=== PATIENT | female | born 1960 | race Caucasian/White ===

== ENCOUNTER 2019-04-16 22:43 | Inpatient (IN) | payer MEDICAID ==
[~2019-04-16] VITALS: Ht 165.1 cm; Wt 86.6 kg
[2019-04-16 22:51] VITALS: BP_SYST 124
[2019-04-16] MEDS ORDERED: NS 1000 ML IV.SOLN IV ONE (23:15)
[2019-04-16] MEDS ORDERED: IBUPROFEN 600 MG TABLET PO ONE (23:15)
[2019-04-16 23:16] LABS: BILIRUBIN,URINE NEGATIVE (NEGATIVE); BLOOD, URINE 3+ (NEGATIVE); COLOR,URINE YELLOW (YELLOW); GLUCOSE,URINE NEGATIVE (NEGATIVE); KETONES,URINE NEGATIVE (NEGATIVE); LEUKOCYTE ESTERASE ,URINE TRACE (NEGATIVE); NITRITE, URINE NEGATIVE (NEGATIVE); PH,URINE 5.5 (5.0-8.0); PROTEIN URINE 3+ (NEGATIVE)
[2019-04-16 23:24] LABS: HEMATOCRIT 36.4 % (36-48); HEMOGLOBIN 12.6 g/dL (12.0-16.0); MEAN CORPUSCULAR HEMOGLOBIN 31 pg (27-31); MEAN CORPUSCULAR HGB CONC 35 % (32-36); MEAN CORPUSCULAR VOLUME 88 fL (79.0-98.0); PLATELET COUNT (AUTO) 220 K/uL (130-430); RED BLOOD CELL COUNT(AUTO) 4.11 MIL/uL (4.2-6.2); RED CELL DISTRIBUTION WIDTH 13.5 % (9.0-15.0); WHITE BLOOD COUNT (AUTO) 2.9 K/uL (4.8-10.8)
[2019-04-16] MEDS ORDERED: KETAMINE 30 MG/3 ML SYRINGE 30 MG in NS 100 ML IV ONE (23:30)
[2019-04-16] MEDS ORDERED: DILTIAZEM HCL 25 MG/5 ML VIAL IVP ONE (23:30)
[2019-04-16 23:31] LABS: CALCIUM 9.1 mg/dL (8.4-11.0); CREATININE 1.24 mg/dL (0.55-1.30); POTASSIUM 3.7 mmol/L (3.5-5.1)
[2019-04-16 23:37] LABS: ALBUMIN 3.2 g/dL (3.4-4.8)
[2019-04-16 23:38] LABS: BACTERIA,URINE FEW /HPF (None Seen); CLARITY/URINE HAZY (CLEAR); COARSE GRANULAR CASTS,URINE 0-10 /LPF (None Seen); FINE GRANULAR CASTS,URINE 0-10 /LPF (None Seen); YEAST,URINE Few /HPF (None Seen)
[2019-04-16 23:39] LABS: MUCUS,URINE 2+ /LPF (None Seen); OTHER CASTS, URINE WBC CASTS 1+ /LPF (None Seen)
[2019-04-16] MEDS ORDERED: NACL 0.9% 2,000 ML IV ONE (23:45)
[2019-04-16] MEDS ORDERED: NS 250 ML IV ONE (23:45)
[2019-04-16] MEDS ORDERED: cefTRIAXone 1 GM IVPB PREMIX 50 ML IV ONE (23:45)
[2019-04-16 23:55] LABS: BAND % (MANUAL) 28 % (0-6); BASOPHILS % (MANUAL) 0 % (0-2); EOSINOPHILS % (MANUAL) 0 % (0-7); LYMPHOCYTES % (MANUAL) 22 % (20-46); MONOCYTES % (MANUAL) 1 % (0-11)
[2019-04-17 02:08] VITALS: BP_SYST 138
[2019-04-17 07:52] VITALS: BP_SYST 93
[2019-04-17 14:39] VITALS: BP_SYST 94
[2019-04-17] MEDS: ACETAMINOPHEN 325 MG TABLET PO PRN (15:50)
[2019-04-17 17:11] VITALS: BP_SYST 105
[2019-04-17] MEDS ORDERED: cefTRIAXone 1 GM IVPB PREMIX 50 ML IV SCH (21:00)
[2019-04-18] VITALS: BP_SYST 110
[2019-04-18] MEDS: ACETAMINOPHEN 325 MG TABLET PO PRN ×2 (00:08→08:37)
[2019-04-18 08:27] VITALS: BP_SYST 126
[2019-04-18] MEDS ORDERED: GENTAMICIN SULFATE 300 MG in NS 100 ML IV ONE (09:00)
[2019-04-18 09:51] LABS: BASOPHILS % (AUTO) 0.7 % (0.0-2.0); EOSINOPHILS # (AUTO) 0.1 K/uL (0.0-0.4); EOSINOPHILS % (AUTO) 1.3 % (0.0-4.0); HEMATOCRIT 35.2 % (36-48); HEMOGLOBIN 12.1 g/dL (12.0-16.0); LYMPHOCYTES # (AUTO) 1.1 K/uL (1.0-5.5); LYMPHOCYTES % (AUTO) 16.2 % (20.5-51.5); MEAN CORPUSCULAR HEMOGLOBIN 31 pg (27-31); MEAN CORPUSCULAR HGB CONC 35 % (32-36); MEAN CORPUSCULAR VOLUME 89 fL (79.0-98.0); MONOCYTES % (AUTO) 15.8 % (1.7-9.3); NEUTROPHILS # (AUTO) 4.3 K/uL (1.8-7.7); PLATELET COUNT (AUTO) 241 K/uL (130-430); RED BLOOD CELL COUNT(AUTO) 3.94 MIL/uL (4.2-6.2); RED CELL DISTRIBUTION WIDTH 13.7 % (9.0-15.0); WHITE BLOOD COUNT (AUTO) 6.5 K/uL (4.8-10.8)
[2019-04-18 10:07] LABS: CALCIUM 9.2 mg/dL (8.4-11.0); CREATININE 0.77 mg/dL (0.55-1.30); POTASSIUM 3.5 mmol/L (3.5-5.1)
[2019-04-18 10:12] LABS: ALBUMIN 2.7 g/dL (3.4-4.8); TOTAL BILIRUBIN 0.6 mg/dL (0.0-1.0)
[2019-04-18 12:00] VITALS: BP_SYST 126
[2019-04-18] MEDS: PIPERACILLIN/TAZO 4.5GM/DEX-IS 100 ML IV SCH ×2 (15:10→21:22)
[2019-04-18] MEDS: HYDROcodone/ACETAMIN 5-325 MG TAB (NORCO/ VICODIN) PO PRN ×2 (15:23→22:16)
[2019-04-18 16:20] VITALS: BP_SYST 129
[2019-04-18 20:00] VITALS: BP_SYST 131
[2019-04-18 22:48] VITALS: BP_SYST 121
[2019-04-19] MEDS: PIPERACILLIN/TAZO 4.5GM/DEX-IS 100 ML IV SCH ×3 (05:01→21:43)
[2019-04-19 08:00] VITALS: BP_SYST 121
[2019-04-19] MEDS: HYDROcodone/ACETAMIN 5-325 MG TAB (NORCO/ VICODIN) PO PRN (09:11)
[2019-04-19] MEDS ORDERED: ONDANSETRON HCL 4 MG/2 ML VIAL IVP PRN (11:00)
[2019-04-19] MEDS ORDERED: GENTAMICIN SULFATE 300 MG in NS 100 ML IV ONE (12:30)
[2019-04-19 12:48] VITALS: BP_SYST 114
[2019-04-19] MEDS: ACETAMINOPHEN 325 MG TABLET PO PRN (13:55)
[2019-04-19 16:27] VITALS: BP_SYST 144
[2019-04-19 20:00] VITALS: BP_SYST 113
[2019-04-19 23:19] VITALS: BP_SYST 122
[2019-04-20] MEDS: PIPERACILLIN/TAZO 4.5GM/DEX-IS 100 ML IV SCH ×3 (05:15→21:08)
[2019-04-20 08:00] VITALS: BP_SYST 122
[2019-04-20 11:52] VITALS: BP_SYST 107
[2019-04-20] MEDS ORDERED: INSULIN REGULAR, HUMAN 100 UNITS/ML, 10 ML VIAL (humuLIN R) SUBCUT PRN (13:15)
[2019-04-20] MEDS ORDERED: DEXTROSE 50% JECT 50 ML DISP.SYRIN IVP PRN (13:15)
[2019-04-20] MEDS: NEOMYCIN/POLYMYXN B/GRAMICIDIN 10 ML OPHT. DROPS OP SCH ×3 (14:00→21:16)
[2019-04-20 16:28] VITALS: BP_SYST 114
[2019-04-20 20:00] VITALS: BP_SYST 118
[2019-04-21] VITALS: BP_SYST 115
[2019-04-21] MEDS: NEOMYCIN/POLYMYXN B/GRAMICIDIN 10 ML OPHT. DROPS OP SCH ×5 (05:48→21:18)
[2019-04-21] MEDS: PIPERACILLIN/TAZO 4.5GM/DEX-IS 100 ML IV SCH ×2 (05:56→14:31)
[2019-04-21 06:30] LABS: BASOPHILS # (AUTO) 0.1 K/uL (0.0-0.2); BASOPHILS % (AUTO) 0.7 % (0.0-2.0); EOSINOPHILS # (AUTO) 0.1 K/uL (0.0-0.4); EOSINOPHILS % (AUTO) 1.3 % (0.0-4.0); HEMATOCRIT 36.8 % (36-48); HEMOGLOBIN 12.7 g/dL (12.0-16.0); LYMPHOCYTES # (AUTO) 2.4 K/uL (1.0-5.5); LYMPHOCYTES % (AUTO) 25.4 % (20.5-51.5); MEAN CORPUSCULAR HEMOGLOBIN 31 pg (27-31); MEAN CORPUSCULAR HGB CONC 35 % (32-36); MEAN CORPUSCULAR VOLUME 89 fL (79.0-98.0); MONOCYTES # (AUTO) 0.9 K/uL (0.0-1.0); MONOCYTES % (AUTO) 9.2 % (1.7-9.3); NEUTROPHILS % (AUTO) 63.4 % (40.0-70.0); PLATELET COUNT (AUTO) 363 K/uL (130-430); RED BLOOD CELL COUNT(AUTO) 4.15 MIL/uL (4.2-6.2); RED CELL DISTRIBUTION WIDTH 13.3 % (9.0-15.0); WHITE BLOOD COUNT (AUTO) 9.4 K/uL (4.8-10.8)
[2019-04-21 06:41] LABS: CALCIUM 9.3 mg/dL (8.4-11.0); CREATININE 0.66 mg/dL (0.55-1.30); POTASSIUM 3.6 mmol/L (3.5-5.1)
[2019-04-21 08:11] VITALS: BP_SYST 111
[2019-04-21 12:03] VITALS: BP_SYST 109
[2019-04-21 16:08] VITALS: BP_SYST 122
[2019-04-21] MEDS ORDERED: PANTOPRAZOLE SODIUM 40 MG TAB PO ONE (16:45)
[2019-04-21] MEDS ORDERED: MAG-AL HYDROX/SIMETH 30 ML UDC PO PRN (16:45)
[2019-04-21] MEDS ORDERED: cefTRIAXone 1 GM in D5W 50 ML IV SCH (17:00)
[2019-04-21 19:00] VITALS: BP_SYST 115
[2019-04-21 20:00] VITALS: BP_SYST 115
[2019-04-22 00:20] VITALS: BP_SYST 135
[2019-04-22] MEDS: NEOMYCIN/POLYMYXN B/GRAMICIDIN 10 ML OPHT. DROPS OP SCH ×2 (05:57→09:32)
[2019-04-22 07:55] VITALS: BP_SYST 126
[2019-04-22] MEDS ORDERED: PANTOPRAZOLE SODIUM 40 MG TAB PO SCH (09:00)
[2019-04-22 11:13] VITALS: BP_SYST 128
[2019-04-22] MEDS ORDERED: LEVAQUIN PO (11:38)
[2019-04-22 12:00] VITALS: BP_SYST 128
== END 2019-04-22 12:50 | disposition home or self-care (01) | DRG 720 ==
LOC: SED 22:43 → SMU 04-17 01:45
PROVIDERS: ADMIT Internal Medicine Hospice and Palliative Medicine; ATTEND Internal Medicine Hospice and Palliative Medicine
DX: A41.51 Sepsis due to Escherichia coli [E. coli] (principal); N12 Tubulo-interstitial nephritis, not specified as acute or chronic; E66.9 Obesity, unspecified; R73.9 Hyperglycemia, unspecified; H10.9 Unspecified conjunctivitis; R51 Headache; K21.9 Gastro-esophageal reflux disease without esophagitis; I10 Essential (primary) hypertension; R65.20 Severe sepsis without septic shock; Z68.32 Body mass index [BMI] 32.0-32.9, adult; Z98.891 History of uterine scar from previous surgery; Z90.49 Acquired absence of other specified parts of digestive tract; Z90.710 Acquired absence of both cervix and uterus
CPT/HCPCS: 36415; 70450-TC; 80048; 80053; 81000-TC; 82962; 83605; 85007; 85025; 85027; 87040-TC; 87086; 87186-TC; 93005; J0696; J1580; J1815; J2405; J2543; J7060